=== PATIENT | female | born 1995 | race Caucasian/White ===

== ENCOUNTER 2017-01-03 02:38 | Emergency (ER) | payer OTHER ==
--- NOTE | 2017-01-03 03:47 | CPEKG ---
Heart Rate: 79 RR Interval: 759 P-R Interval: 164 QRSD Interval: 70 QT Interval: 376 QTC Interval: 432 P [place]: 19 QRS [place]: 69 T Wave [place]: 48 EKG Severity - ABNORMAL ECG - EKG Impression: SINUS RHYTHM EKG Impression: ABNORMAL Q SUGGESTS ANTERIOR INFARCT Electronically Signed By: Gem Page 04-Jan-2017 04:16:07
--- NOTE | 2017-01-03 03:53 | EDPHY ---
H & P Stated Complaint: Sternal and UR CP, worse with coughing x~10 hr; R arm weakness Time Seen by Provider: 01/03/17 03:24 HPI/ROS: HPI The patient presents with chest pain which has been present for the last 12 hours which is diffuse throughout her anterior chest. She describes it as a constant and dull pain which is worse with movement and deep breaths. She does not have any shortness of breath, nausea or vomiting. She says her right arm is tingling somewhat and feels slightly weak. She takes Adderall occasionally, though has not taken it in several days. She was sick with a URI type illness approximately 1 week ago. She has not had any cough or fever. She does not have any leg swelling, recent airplane flight, recent operations.. REVIEW OF SYSTEMS Constitutional: No fever, no chills. Eyes: No discharge. ENT: No sore throat. Cardiovascular: No chest pain, no palpitations. Respiratory: No cough, no shortness of breath. Gastrointestinal: No abdominal pain, no vomiting. Genitourinary: No hematuria. Musculoskeletal: No back pain. Skin: No rashes. Neurological: No headache. 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 FHx: No family history of CAD PHYSICAL General Appearance: Alert, no distress Eyes: Pupils equal and round no pallor or injection ENT, Mouth: Mucous membranes moist Respiratory: There are no retractions, lungs are clear to auscultation, no chest wall tenderness Cardiovascular: Regular rate and rhythm Gastrointestinal: Abdomen is soft and non-tender, no masses, bowel sounds normal Neurological: A&O, 5/5 strength in her upper extremities which is symmetric, sensation is intact to light touch throughout her upper extremities Skin: Warm and dry, no rashes Musculoskeletal: Neck is supple non tender Extremities: symmetrical, full range of motion Psychiatric: Patient is oriented X 3, there is no agitation Source: Patient - Personal History LMP (Females 10-55): 1-7 Days Ago Current Tetanus/Diphtheria Vaccine: Yes Current Tetanus Diphtheria and Acellular Pertussis (TDAP): Yes - Medical/Surgical History Hx Asthma: No Hx Chronic Respiratory Disease: No Hx Diabetes: No Hx Cardiac Disease: No Hx Renal Disease: No Hx Cirrhosis: No Hx Alcoholism: No Hx HIV/AIDS: No Hx Splenectomy or Spleen Trauma: No Other PMH: denies - Social History Smoking Status: Never smoked Constitutional: Initial Vital Signs Temperature (C) 36.7 C 01/03/17 02:40 Heart Rate 116 H 01/03/17 02:40 Respiratory Rate 16 01/03/17 02:40 Blood Pressure 130/100 H 01/03/17 02:40 O2 Sat (%) 100 01/03/17 02:40 O2 Delivery Mode Room Air Allergies/Adverse Reactions: tree nut Allergy (Verified 01/03/17 02:44) Home Medications: Medication Instructions Recorded Adderall 01/03/17 Medical Decision Making - Diagnostics EKG Interpretation: EKG: Complete interpretation has been separately recorded in the [facility] archive. Summary impression: Normal sinus rhythm Differential Diagnosis: This is a 21-year-old healthy female who presents with 12 hours of diffuse chest pain with no associated shortness of breath. On exam, she is somewhat anxious, with no tenderness of her chest wall, heart sounds are normal and her breath sounds are clear. Differential diagnosis includes pericarditis, costochondritis, anxiety, GERD, less likely PE given PERC negative, less likely ACS given her young age. The patient refused chest x-ray and she is concerned about her health insurance coverage for this visit. EKG was performed and is normal. I feel the cause of her pain is likely costochondritis versus anxiety. I have encouraged her to take ibuprofen and [facility] if her symptoms persist for more than 1 day. She is to return to the emergency room if she is worse in any way. Departure - Departure Disposition: Home, Routine, Self-Care Clinical Impression: Chest pain Qualifiers: Chest pain type: unspecified Qualified Code(s): R07.9 - Chest pain, unspecified Condition: Good Instructions: Chest Pain (ED) Additional Instructions: You may have costochondritis as the cause of your pain. Because of this you should take ibuprofen as needed. If the pain persists, please follow up with the student center. Referrals: [facility] [Outside] - As per Instructions
[2017-01-03 04:04] VITALS: BP 116/70; PULSE 86; RESP 20; TEMP 97.9; O2SAT 99
== END 2017-01-03 04:04 | disposition home or self-care (01) ==
DX: R07.89 Other chest pain (principal)

== ENCOUNTER 2017-03-04 00:57 | Emergency (ER) | payer OTHER ==
[2017-03-04] MEDS ORDERED: RABIES VACC, HUMAN DIPLOID/PF 2.5 UNIT VIAL (RABAVERT) IM ONE (01:34)
[2017-03-04] MEDS ORDERED: RABIES IMMUNE GLOBULIN 300 UNIT/2 ML VIAL IM ONE (01:34)
--- NOTE | 2017-03-04 02:01 | EDPHY ---
H & P Stated Complaint: possble rabies exposure handling raccoons, no cuts bites or scratches - Personal History LMP (Females 10-55): 8-14 Days Ago Current Tetanus/Diphtheria Vaccine: Yes Current Tetanus Diphtheria and Acellular Pertussis (TDAP): Yes Tetanus Vaccine Date: 2013 - Medical/Surgical History Hx Asthma: No Hx Chronic Respiratory Disease: No Hx Diabetes: No Hx Cardiac Disease: No Hx Renal Disease: No Hx Cirrhosis: No Hx Alcoholism: No Hx HIV/AIDS: No Hx Splenectomy or Spleen Trauma: No Other PMH: denies - Social History Smoking Status: Never smoked HPI/ROS: Chief complaint: Possible rabies exposure History of present illness: This is a 21-year-old female who presents to emergency department for possible rabies exposure. Patient reports 2 days ago she rescued a litter of wild raccoon's out of the wall in her house. She subsequently cared for them for 24 hours holding them and feeding them with a bottles. She took him to a wildlife rest future today recommended she seek medical care for possible exposure rabies. Patient states she was not scratched or bitten. She is not sure but thinks the animal wildlife breath usual be testing no raccoon's for rabies. She has no other complaints. (Dimitri Edmonds) - Physical Exam Exam: General Appearance: Alert, nontoxic. Eyes: Pupils equal and round no injection. Respiratory: Chest is non tender, lungs are clear to auscultation. Cardiac: regular rate and rhythm Gastrointestinal: Abdomen is soft and non tender, no masses, bowel sounds normal. Musculoskeletal: Neck is supple and non tender. Extremities have full range of motion and are non tender. Skin: No rashes or lesions. (Dimitri Edmonds) Constitutional: Initial Vital Signs Temperature (C) 36.5 C 03/04/17 01:05 Heart Rate 71 03/04/17 01:05 Respiratory Rate 14 03/04/17 01:05 Blood Pressure 129/79 H 03/04/17 01:05 O2 Sat (%) 99 03/04/17 01:05 O2 Delivery Mode Room Air Allergies/Adverse Reactions: tree nut Allergy (Verified 01/03/17 02:44) Home Medications: Medication Instructions Recorded NK [No Known Home Meds] 03/04/17 Medical Decision Making ED Course/Re-evaluation: Patient seen under the supervision of my secondary supervising physician Dr. Gem Page. Patient presents to the emergency department for possible rabies exposure. Patient was not bitten or scratched by the raccoons. I consulted with Infectious Disease, Dr. Ada Aquino. She recommends starting them on rabies prophylaxis and having them follow up in clinic. I have discussed this with the patient and he is in agreement with plan. He is given contact information for follow-up with Infectious Disease. He understand he will need 3 more vaccinations. They are encouraged to follow up with the wildlife refuge to see if they are testing the animals for rabies. Strict return precautions given. (Dimitri Edmonds) PHYSICIAN DOCUMENTATION: The patient was evaluated and managed by the Physician Life Manager. My co- signature indicates that I have reviewed this chart and I agree with the findings and plan of care as documented. I am the secondary supervising physician. (Gem Page) - Data Points Medications Given: Discontinued Medications Rabies Immune Globulin (Imogam Rabies Ht 2ml) 1,080 unit IM .ONCE ONE Stop: 03/04/17 01:35 Last Admin: 03/04/17 02:00 Dose: 1,080 unit Rabies Vaccine Human Diploid Cell (Rabavert) 2.5 unit IM .ONCE ONE Stop: 03/04/17 01:35 Last Admin: 03/04/17 02:00 Dose: 2.5 unit Departure - Departure Disposition: Home, Routine, Self-Care Clinical Impression: Rabies exposure Condition: Good Instructions: Rabies Vaccine (By injection), Rabies Immune Globulin (By injection), Rabies (ED) Additional Instructions: Please follow-up with Infectious Disease for continued evaluation and care You received rabies immunoglobulin today You received your 1st rabies vaccination today, today is day 0, you will need a vaccination on day 3 (3), day 7 (7) and day 14 (14) you can get that through Infectious Disease or by returning to this emergency room Please find out if the raccoon eyes are being tested for rabies If you have other concerns return to the emergency room Referrals: [facility] [Other] - As per Instructions Ada Aquino MD [Medical Doctor] - As per Instructions
[2017-03-04 02:55] VITALS: BP 112/63; PULSE 76; RESP 16; TEMP 97.9; O2SAT 96
== END 2017-03-04 02:55 | disposition home or self-care (01) ==
PROC: 3E0234Z Introduction of Serum, Toxoid and Vaccine into Muscle, Percutaneous Approach (ICD-10-PCS; principal; 2017-03-04)
DX: Z20.3 Contact with and (suspected) exposure to rabies (principal); Z23 Encounter for immunization